=== PATIENT | female | born 1965 | race African-American/Black ===

== ENCOUNTER 2022-04-11 00:53 | Day surgery (SDC) | payer OTHER, SELFPAY ==
[2022-03-30 14:10] VITALS: BMI 26.2
--- NOTE | 2022-04-10 12:16 | PM.HPGS ---
History of Present Illness History of Present Illness Consent: Risks, benefits, and alternatives have been discussed and questions answered. Patient agrees to proceed with procedure. Chief complaint: neoplasm screening Narrative: Cony Roth is a 57 year old female referred for colon cancer screening. 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 Essential hypertension Hematuria Iron deficiency Other fatigue Pain in left hip Pain of both hip joints Palpitations Vitamin B12 deficiency Vitamin D deficiency Surgical History Surgical History S/P gastric bypass Family History Family History Mother Hypertension Social History Social History Smoking status: Never smoker Second hand tobacco smoke exposure: No Alcohol intake: never Substance use: never Substance use type: does not use Lack of Transportation: No Lack of Food: Never True Current Housing: I Have Housing Concerned About Future Housing: No Difficulty Paying Gas/Electric Bills: No Difficulty Paying for Meds: No Currently Unemployed: No Education: Bachelor's Degree Difficulty w/ Childcare or Family Care: No Living arrangements: with family Spiritual care concerns: No Meds Home Medications and Allergies Home Medications Medication Instructions Recorded Confirmed Type ergocalciferol (vitamin D2) 1,250 See Rx Instructions .Route 10/06/21 03/30/22 Rx mcg (50,000 unit) capsule .COMPLEX #12 caps hydrochlorothiazide 12.5 mg tablet See Rx Instructions .Route 11/29/21 03/30/22 Rx .COMPLEX #90 tabs losartan 100 mg tablet 100 mg PO DAILY #90 tabs 02/26/22 03/30/22 Rx calcium carbonate 600 mg calcium 600 mg PO DAILY 03/22/22 03/30/22 History (1,500 mg) tablet ferrous sulfate 325 mg (65 mg 325 mg PO DAILY 03/30/22 03/30/22 History iron) tablet Allergies Allergy/AdvReac Type Severity Reaction Status Date / Time hydrocodone AdvReac Mild NAUSEA/REST Verified 04/11/22 07:25 LESSNESS Exam Const: General: alert Orientation/consciousness: patient oriented x3 Resp: Auscultation: clear to auscultation bilaterally Cardio: Rhythm: regular rhythm GI: GI Palp: Yes Soft to palpation and No Tenderness to palpation present (GI) Neuro: General: patient oriented x3 Assessment and Plan Assessment and plan (1) Colon cancer screening: Code(s): Z12.11 - Encounter for screening for malignant neoplasm of colon Status: Acute Assessment and Plan: Colonoscopy with possible biopsy or polypectomy or cautery or injection of substances.
[2022-04-11 07:27] VITALS: BP 120/54; PULSE 61; RESP 18; TEMP 36.2; O2SAT 100
[2022-04-11] MEDS: LACTATED RINGERS 1,000 ML 150 ML IV CONT (07:40)
--- NOTE | 2022-04-11 08:05 | WPDANESEPPF ---
Anes - Initial Pre Proc Eval Procedure: Operation Date: 04/11/22 08:30 Proposed Procedures p Screening Colonoscopy - Bryson Gonzalez MD Date/Time: 04/11/22 08:05 Surgeon: Bryson Gonzalez MD Pre Op Diagnosis: neoplasm screening Patient Data Age: 57 Gender: F Height: 1.6 m Weight: 68.4 kg Last Vital Signs Temp 97.1 F L 04/11/22 07:27 Pulse 61 04/11/22 07:27 Resp 18 04/11/22 07:27 BP 120/54 L 04/11/22 07:27 Pulse Ox 100 04/11/22 07:27 O2 Del Method Room Air 04/11/22 07:27 Allergies Allergy/AdvReac Type Severity Reaction Status Date / Time hydrocodone AdvReac Mild NAUSEA/REST Verified 04/11/22 07:25 LESSNESS Home Medications Medication Instructions Recorded Confirmed Type ergocalciferol (vitamin D2) 1,250 See Rx Instructions .Route 10/06/21 03/30/22 Rx mcg (50,000 unit) capsule .COMPLEX #12 caps hydrochlorothiazide 12.5 mg tablet See Rx Instructions .Route 11/29/21 03/30/22 Rx .COMPLEX #90 tabs losartan 100 mg tablet 100 mg PO DAILY #90 tabs 02/26/22 03/30/22 Rx calcium carbonate 600 mg calcium 600 mg PO DAILY 03/22/22 03/30/22 History (1,500 mg) tablet ferrous sulfate 325 mg (65 mg 325 mg PO DAILY 03/30/22 03/30/22 History iron) tablet Patient hx anesthesia problems: none Family hx anesthesia problems: none Results Review: All pre-operative results and documents have been reviewed as part of the pre-operative evaluation. 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 Essential hypertension Hematuria Iron deficiency Other fatigue Pain in left hip Pain of both hip joints Palpitations Vitamin B12 deficiency Vitamin D deficiency Surgical History Surgical History S/P gastric bypass Family History Family History Mother Hypertension Social History Social History Smoking status: Never smoker Second hand tobacco smoke exposure: No Alcohol intake: never Substance use: never Substance use type: does not use Lack of Transportation: No Lack of Food: Never True Current Housing: I Have Housing Concerned About Future Housing: No Difficulty Paying Gas/Electric Bills: No Difficulty Paying for Meds: No Currently Unemployed: No Education: Bachelor's Degree Difficulty w/ Childcare or Family Care: No Living arrangements: with family Spiritual care concerns: No Anes - Eval Final PreProcedure Day of Procedure 04/11/22 08:05 Patient weight: normal Heart: regular rate and rhythm Lungs: clear to auscultation Airway: Mallampati scale class II Neurological: alert and oriented Last oral intake: >/= 8 hours ASA classification: II Emergent: no Anesthetic plan: proceed Anesthesia type and monitoring: general GIVS and standard monitoring Results Review: All pre-operative results and documents have been reviewed as part of the pre-operative evaluation. Informed Consent: The patient's anesthetic plan and its attendant risks and benefits were discussed with the patient/family/POA. Questions were solicited and answers provided to the satisfaction of the patient/family/POA.
[2022-04-11 08:50] VITALS: BP 103/65; PULSE 69; RESP 22; O2SAT 100
[2022-04-11 09:00] VITALS: BP 103/70; PULSE 56; RESP 15; O2SAT 100
[2022-04-11 09:10] VITALS: BP 118/73; PULSE 60; RESP 12; O2SAT 100
== END 2022-04-11 09:20 | disposition home or self-care (01) ==
PROVIDERS: PCP Family Medicine; Visit Provider Internal Medicine Gastroenterology
PROC: 0DJD8ZZ Inspection of Lower Intestinal Tract, Via Natural or Artificial Opening Endoscopic (ICD-10-PCS; CPT 45378; principal; 2022-04-11 08:30)
DX: Z12.11 Encounter for screening for malignant neoplasm of colon (principal); K57.30 Diverticulosis of large intestine without perforation or abscess without bleeding; D12.2 Benign neoplasm of ascending colon; I10 Essential (primary) hypertension; E55.9 Vitamin D deficiency, unspecified; E61.1 Iron deficiency; Z98.84 Bariatric surgery status
CPT/HCPCS: 45381; 45385; 88305; J2704; J7120

== ENCOUNTER 2022-05-18 14:05 | Outpatient (CLI) | payer OTHER, SELFPAY ==
--- NOTE | ~2022-05-18 | US_ITS ---
EXAMINATION: US pelvic complete w TV DATE: 05/18/2022 15:13 INDICATION: Pelvic pain TECHNIQUE: Multiple transabdominal and endovaginal sonographic images of the pelvis were obtained. COMPARISON: 04/06/2018 FINDINGS: The uterus measures 8.7 x 5.5 x 5.8 cm. There are multiple fibroids of the uterus. An intra mural fibroid of the anterior uterus measures 5.2 x 3.8 x 4.4 cm. There is a 3.7 x 3.7 x 5 cm intramu ral fibroid of the uterine fundus. There is a 1.9 x 2 x 1.7 cm intramural fibroid of the posterior ut erine body on the right. The endometrial complex is effaced by the fibroids. The left ovary is not vi sualized however no left adnexal abnormality is seen. The right ovary measures 2 x 1.4 x 1.3 cm. Ther e is normal vascular flow in the right ovary. There is no free fluid in the pelvis. IMPRESSION: 1. Fibroid uterus Reviewed, dictated and finalized at location F. ROLLING MACHINE OPERATOR IMPRESSION: 1. Fibroid uterus
== END 2022-05-18 14:06 | disposition home or self-care (01) ==
LOC: ANHIMG 14:06
PROVIDERS: PCP Family Medicine; Visit Provider Nurse Practitioner
DX: D25.9 Leiomyoma of uterus, unspecified (principal); N85.2 Hypertrophy of uterus
CPT/HCPCS: 76830; 76856

== ENCOUNTER 2022-05-18 15:14 | Outpatient (CLI) | payer OTHER, SELFPAY ==
--- NOTE | ~2022-05-18 | MM_ITS ---
EXAMINATION: MM screening thomas BI w cindy HISTORY: Screening TECHNIQUE: Craniocaudal and mediolateral oblique 3-D tomosynthesis images were obtained and synthetic 2-D images were generated. CAD analysis was submitted and interpreted. COMPARISON: Comparison to multiple prior studies sequentially, with oldest reviewed study dated 08/30. BREAST PARENCHYMAL COMPOSITION: There are scattered areas of fibroglandular density. FINDINGS: There are developing masses in the upper outer quadrant of the right breast. The left breas t is stable without evidence for malignancy IMPRESSION: 1. Developing masses of the right breast in the upper outer quadrant. 2. Additional mammographic views and possible breast ultrasound are recommended. BI-RADS Category 0: Incomplete: Needs additional imaging evaluation. Reviewed, dictated and finalized at location B. END TESTER IMPRESSION: 1. Developing masses of the right breast in the upper outer quadrant. 2. Additional mammographic views and possible breast ultrasound are recommended . BI-RADS Category 0: Incomplete: Needs additional imaging evaluation.
== END 2022-05-18 15:15 | disposition home or self-care (01) ==
LOC: ANHIMG 15:16
PROVIDERS: PCP Family Medicine; Visit Provider Nurse Practitioner
DX: Z12.31 Encounter for screening mammogram for malignant neoplasm of breast (principal); R92.8 Other abnormal and inconclusive findings on diagnostic imaging of breast
CPT/HCPCS: 77063; 77067

== ENCOUNTER 2022-10-04 12:15 | Outpatient (CLI) | payer OTHER, SELFPAY ==
--- NOTE | ~2022-10-04 | MMUS_ITS ---
EXAMINATION: MM diagnostic thomas RT w cindy, US breast RT limited HISTORY: Follow-up right breast masses TECHNIQUE: Additional 3-D tomosynthesis images of the right breast were performed and synthetic 2-D i mages were generated. CAD analysis was submitted and interpreted. High resolution Limited right breas t breast ultrasound was performed. COMPARISON: Comparison to multiple prior studies sequentially, with oldest reviewed study dated 04/01. BREAST PARENCHYMAL COMPOSITION: Breast composed of scattered areas of fibroglandular density FINDINGS: MAMMOGRAPHIC FINDINGS: There are low-density masses in the upper outer quadrant of the right breast. The densest smallest le desi in the upper outer quadrant posteriorly is most likely benign lymph node. There are additional l ow-density masses in the upper outer quadrant which are obscured by fibroglandular tissue. ULTRASOUND: Limited right breast at 6:00 near the nipple is a cluster of microcysts measuring 7 mm. At 10:00, 7 cm from the nipple, there is a 9 mm cyst. IMPRESSION: 1. No evidence for malignancy in the right breast. Benign findings. 2. Routine yearly screening mammogram and regular clinical breast examination are recommended. BI-RADS Category 2: Benign finding(s). Reviewed, dictated and finalized at location A. IMPRESSION: 1. No evidence for malignancy in the right breast. Benign findings. 2. Routine yearly screening mammogram and regular clinical breast examination a re recommended. BI-RADS Category 2: Benign finding(s).
== END 2022-10-04 12:16 | disposition home or self-care (01) ==
PROVIDERS: PCP Family Medicine; Visit Provider Obstetrics & Gynecology Gynecology
DX: R92.8 Other abnormal and inconclusive findings on diagnostic imaging of breast (principal)
CPT/HCPCS: 76642; 77061; 77065; G0279

== ENCOUNTER 2024-10-01 10:49 | Outpatient (CLI) | payer OTHER, SELFPAY ==
--- NOTE | ~2024-10-01 | MMUS_ITS ---
EXAMINATION: MM diagnostic thomas BI w cindy, US breast LT limited HISTORY: Left breast pain TECHNIQUE: Additional 3-D tomosynthesis images of the breasts were performed and synthetic 2-D images were generated. CAD analysis was submitted and interpreted. High resolution Limited left breast ultr asound was performed. COMPARISON: Comparison to multiple prior studies sequentially, with oldest reviewed study dated 06/03. BREAST PARENCHYMAL COMPOSITION: Not dense: There are scattered areas of fibroglandular density. FINDINGS: MAMMOGRAPHIC FINDINGS: There are multiple benign-appearing masses in the upper outer quadrant of the right breast which are not significantly changed from prior studies. No new masses, calcifications or architectural distorti on in either breast to suggest malignancy. ULTRASOUND: Limited left breast ultrasound: At 1:00, 2 cm from the nipple there is a 4 mm cyst. No suspicious mas ses to suggest malignancy. IMPRESSION: 1. No evidence for malignancy in either breast. 2. Routine yearly screening mammogram and regular clinical breast examination are recommended. BI-RADS Category 2: Benign finding(s). Reviewed, dictated and finalized at location B. IMPRESSION: 1. No evidence for malignancy in either breast. 2. Routine yearly screening mammogram and regular clinical breast examination a re recommended. BI-RADS Category 2: Benign finding(s).
--- OUTSIDE RECORDS SUMMARY | 2024-10-01 11:07 | XMS_ITS | Referral Summary ---
Author Organization [facility] [address] [place] [address] [place] [id number] Care Team Providers Care Grinder Set Up Operator Jig Name Role Phone Unknown, Notinfile Primary Care Provider Unavail able Allergies No known active allergies Medications ergocalciferol (VITAMIN D) 50,000 unit capsule 12/19/2016 Active losartan (COZAAR) 100 mg tablet 12/20/2016 Activ e Social History Tobacco Use Types Packs/Day Years Used Date Smoking Tobacco: Never Smokeless Tobacco: Never Alcohol Use Standard Drinks/Week Comments No 0 (1 standard drink = 0.6 oz pur e alcohol) Comments Unknown Sex and Gender Information Value Date Recorded Sex Assigned at Not on file Legal Sex Female 7:46 PM HOT WIRE GLASS TUBE CUTTER Gender Identity Not on file Sexual Orientation Not on file Last Filed Vital Signs Vital Sign Reading Time Taken Comments Blood Pressure 143/84 01/16/2017 7:26 AM CDT Pulse 61 01/16/2017 7:26 AM CDT Temperature - - Respiratory Rate - - Oxygen Saturation 97% 03/17/2014 12:06 PM HOT WIRE GLASS TUBE CUTTER Inhaled Oxygen Concentration - - Weight 60.8 kg (134 lb) 01/16/2017 7:26 AM CDT Height 160 cm (5' 3) 01/16/2017 7:26 AM CDT Body Mass Index 23.74 01/16/2017 7:26 AM CDT Plan of Treatment Not on file Insurance [employer] [facility] [employer] H[employer]/PPO Address: [facility] [id number] [place] [id number] Care Teams Grinder Set Up Operator Jig Relationship Specialty Start Date End Date Unknown, Notinfile PCP - General 01/14/17
--- OUTSIDE RECORDS SUMMARY | 2024-10-01 11:07 | XMS_ITS | Clinical Summary ---
Author Organization [facility] Address [address] [place] [id number] Care Team Providers Care Mail Rider Name Role Phone Unknown, Notinfile Primary Care Provider Unavail able Allergies No known active allergies Medications ergocalciferol (VITAMIN D) 50,000 unit capsule 12/19/2016 Active losartan (COZAAR) 100 mg tablet 12/20/2016 Activ e Surgical History Surgery Date Site/Laterality Comments PARTIAL NEPHRECTOMY Medical History Medical History Date Comments Hypertension Family History Medical History Relation Name Comments Cancer Neg Hx Hypertension Neg Hx Social History Tobacco Use Types Packs/Day Years Used Date Smoking Tobacco: Never Smokeless Tobacco: Never Alcohol Use Standard Drinks/Week Comments No 0 (1 standard drink = 0.6 oz pur e alcohol) Comments Unknown Sex and Gender Information Value Date Recorded Sex Assigned at Not on file Legal Sex Female 7:46 PM MANAGER ONLINE Gender Identity Not on file Sexual Orientation Not on file Obstetrics History Last Filed Vital Signs Vital Sign Reading Time Taken Comments Blood Pressure 143/84 01/16/2017 7:26 AM CDT Pulse 61 01/16/2017 7:26 AM CDT Temperature - - Respiratory Rate - - Oxygen Saturation 97% 03/17/2014 12:06 PM MANAGER ONLINE Inhaled Oxygen Concentration - - Weight 60.8 kg (134 lb) 01/16/2017 7:26 AM CDT Height 160 cm (5' 3) 01/16/2017 7:26 AM CDT Body Mass Index 23.74 01/16/2017 7:26 AM CDT Plan of Treatment Not on file Insurance [employer] [facility] [employer] H[employer]/PPO Address: [place] [address] Care Teams Mail Rider Relationship Specialty Start Date End Date Unknown, Notinfile PCP - General 01/14/17
== END 2024-10-01 10:50 | disposition home or self-care (01) ==
PROVIDERS: PCP Family Medicine; Visit Provider Nurse Practitioner
DX: N64.4 Mastodynia (principal)
CPT/HCPCS: 76642; 77062; 77066; G0279